=== PATIENT | male | born 1945 | race Caucasian/White ===

== ENCOUNTER 2017-03-26 09:10 | Emergency (ER) | payer MEDICARE, OTHER ==
[~2017-03-26] VITALS: Ht 165.1 cm; Wt 79.4 kg
[~2017-03-26 09:10] MED LIST: AGGRENOX 25 MG-21 EA PO; CARVEDILOL3.125 MG PO; FENOFIBRATE160 MG PO; LEVEMIR100 UNIT/1 SUB-Q; LISINOPRIL-HCT1 EAC2 PO; METFORMIN HCL500 MG PO; NOVOLOG FL100 UNIT/1 SUB-Q; SIMVASTATIN20 MG PO; VICTOZA 3-0.6 MG/0.1 SUB-Q
[2017-03-26] MEDS ORDERED: HUMALOG100 UNITS/ IV (09:42)
== END 2017-03-26 12:35 | disposition home or self-care (01) ==
LOC: ED 09:10
DX: R10.30 Lower abdominal pain, unspecified (principal); N41.1 Chronic prostatitis; Z79.4 Long term (current) use of insulin; Z79.899 Other long term (current) drug therapy; Z79.84 Long term (current) use of oral hypoglycemic drugs
CPT/HCPCS: 74176; 80053; 81001; 85025; 96361; 96374; 96375; 99284; J1885; J2405; J7030

== ENCOUNTER 2017-04-30 16:16 | Emergency (ER) | payer MEDICARE, OTHER ==
[~2017-04-30] VITALS: Ht 165.1 cm; Wt 79.4 kg
[~2017-04-30 16:16] MED LIST changes: +HUMALOG100 UNITS/ IV
[2017-04-30] MEDS ORDERED: ASPIR 8181 MG PO (16:55)
[2017-04-30] MEDS ORDERED: PLAVIX75 MG PO (16:55)
[2017-04-30] MEDS ORDERED: AUGMENTIN 875-1 EACH PO (17:52)
--- NOTE | 2017-05-03 07:23 | EKG ---
[facility] [address] [facility] [place], [place] [address] Signed Normal sinus rhythm Possible Anterior infarct , age undetermined Abnormal ECG No previous ECGs available Confirmed by RENATA FRAGA MD ([id number]) on 05/03/2017 7:23:06 AM Electronically Signed By: RENATA FRAGA MD 05/03/17722 PATIENT NAME: ARSALAN HUAARLETTE NOBLE Electrocardiogram DATE OF : 45 PHYSICIAN: RENATA FRAGA MD REPORT #: [id number] REPORT IS CONFIDENTIAL AND NOT TO BE RELEASED WITHOUT AUTHORIZATION
== END 2017-04-30 17:55 | disposition home or self-care (01) ==
LOC: ED 16:16
DX: R07.89 Other chest pain (principal); H66.93 Otitis media, unspecified, bilateral; E11.9 Type 2 diabetes mellitus without complications; I10 Essential (primary) hypertension; Z79.4 Long term (current) use of insulin; Z79.82 Long term (current) use of aspirin; Z79.899 Other long term (current) drug therapy
CPT/HCPCS: 71046; 80048; 84484; 85025; 93005; 93010; 99283

== ENCOUNTER 2017-05-22 09:23 | Emergency (ER) | payer MEDICARE, OTHER ==
[~2017-05-22] VITALS: Ht 165.1 cm; Wt 79.4 kg
[~2017-05-22 09:23] MED LIST changes: +ASPIR 8181 MG PO; +AUGMENTIN 875-1 EACH PO; +PLAVIX75 MG PO
[2017-05-22] MEDS ORDERED: LEVAQUIN750 MG PO (10:55)
== END 2017-05-22 11:10 | disposition home or self-care (01) ==
LOC: ED 09:23
PROC: 4A0D7LZ Measurement of Urinary Volume, Via Natural or Artificial Opening (ICD-10-PCS; principal; 2017-05-22)
DX: N39.0 Urinary tract infection, site not specified (principal); N40.1 Benign prostatic hyperplasia with lower urinary tract symptoms; N39.41 Urge incontinence; E11.9 Type 2 diabetes mellitus without complications; I10 Essential (primary) hypertension; Z79.4 Long term (current) use of insulin; Z79.82 Long term (current) use of aspirin; Z79.899 Other long term (current) drug therapy; Z79.84 Long term (current) use of oral hypoglycemic drugs
CPT/HCPCS: 51798; 81001; 87077; 87088; 87186; 99284

== ENCOUNTER 2020-10-17 05:48 | Day surgery (SDC) | payer MEDICARE, OTHER ==
[~2020-10-17] VITALS: Ht 170.2 cm; Wt 79.5 kg
[~2020-10-17 05:48] MED LIST changes: +CEPHALEXIN500 MG PO; +FLOMAX0.4 MG PO; +LEVAQUIN750 MG PO; +LEVEMIR FL100 UNIT/2 SQ; +PROSTATE HEALT1 EAC1 PO; +ZYRTEC10 MG PO
--- NOTE | 2020-10-17 09:34 | NUR ---
10/17/20 0934 [place] [facility] 0928: PT ARRIVES TO PACU AWAKE WITH 6L O2 VIA MASK, SATS 100%. PT RESP EVEN AND UNLABORED. PT ABLE TO DENY ANY NAUSEA AND STATES "A LITTLE" PAIN WHEN ASKED. EVANS LADD AT BEDSIDE.
--- NOTE | 2020-10-17 11:02 | NUR ---
PT TO MED-SURG VIA STRETCHER ALERT AND COOPERATIVE. ASSISTED TO THE BED SCD'S IN PLACE. PT AGREES HE IS COMFORTABLE. ASCENCIO DRAINING PALE PINK, OPENED UNTIL RAN CLEAR THEN SET BACK TO A SLOW DRIP. PT HAS FRIEND AT BEDSIDE. FOOD AND DRINK PROVIDED. CALL LIGHT IN HAND ORIENTED TO ROOM. AGREES TO CALL FOR ANY NEEDS OR DISCOMFORTS.
[2020-10-17] MEDS ORDERED: COREG3.125 MG PO (11:07)
[2020-10-17] MEDS ORDERED: ZOCOR40 MG PO (11:11)
--- NOTE | 2020-10-17 11:35 | NUR ---
PT CONTINUES AWAKE RESTING IN BED VISITING WITH GUEST. REPOSITONS SELF FLOEY DRAINS RED FOR A TIME, RETURNS TO LIGHT PINK. NO CLOTS. PT CONTINUES TO DENY PAIN OR NEED OF MEDICATION. CBG RECORDED FROM HIS INDWELLING DEVICE, INSULIN GIVEN, FOOD PROVIDED.
--- NOTE | 2020-10-17 13:46 | NUR ---
pt up to bsc
[2020-10-17] MEDS ORDERED: OXYCODONE HCL5 MG PO (14:07)
[2020-10-17] MEDS ORDERED: CEFDINIR300 MG PO (14:08)
[2020-10-17] MEDS ORDERED: COLACE100 MG PO (14:15)
[2020-10-17] MEDS ORDERED: METFORMIN HCL500 M3 PO (14:56)
[2020-10-17] MEDS ORDERED: LEVEMIR100 UNIT/1 SUB-Q (14:57)
[2020-10-17] MEDS ORDERED: INSULIN LI100 UNIT/1 SUB-Q (14:58)
--- NOTE | 2020-10-17 15:19 | NUR ---
PT RESTING EYES CLOSED. CBI IS CLAMPED AT THIS TIME, HAS BEEN FOR APPROX 1 HOUR. CLEAR YELLOW URINE DRAINING, NO PINK OR RED COLOR PRESENT AT ALL. SCD'S IN PLACE, CALL LIGHT IN REACH, IV INFUSING. HR CONTINUES TO BE MIGUEL RUNNING 40'S AND 50'S CURRENTLY.
--- NOTE | 2020-10-17 17:55 | NUR ---
PATIENT BACK TO BED FROM BSC, IND. VITALS AND I&O'S CHARTED. CALL LIGHT IN REACH. NO FURTHER NEEDS AT THIS TIME.
--- NOTE | 2020-10-17 19:42 | NUR ---
REPORT RECEIVED FROM DAY SHIFT RN. PT LYING IN BED ALERT AND ORIENTED. CBI CLAMPED. URINE YELLOW IN TUBING. IVF INFUSING WNL. DENIES NEEDS AT THIS TIME. WHITE BOARD UPDATED. CALL LIGHT IN REACH.
--- NOTE | 2020-10-17 20:04 | NUR ---
DISCUSSED WITH DR. HAIDER PT BLOOD SUGAR. VERBAL ORDERS RECEIVED VERIFIED WITH READ BACK METHOD.
--- NOTE | 2020-10-17 21:45 | NUR ---
EVENING ASSESSMENT COMPLETE. SCHEDULED MEDS ADMINISTERED PER EMAR. PT USED IMPLANTED DEVICE TO CHECK OWN BLOOD SUGAR. SLIDING SCALE INSULIN ADMINISTERED PER ORDER. CBI CLAMPED. URINE RED TINGED. NO CLOTS NOTED. PT REPORTS HE HAD JUST ROLLED OVER TO HIS SIDE AND RED WAS NOTICED IN TUBING. SMALL AMOUNT OF RED DRAINAGE FROM PENIS, JANELLE CARE DONE. PRN FOR PAIN ADMINISTERD FOR DISCOMFORT. IVF INFUSING WNL. CPOX AND SCD'S IN PLACE. PT DENIES QUESTIONS OR CONCERNS. CALL LIGHT IN REACH.
--- NOTE | 2020-10-18 00:24 | NUR ---
PT RESTING IN BED WITH EYES CLOSED. RESPIRATIONS EVEN. NEW BAG IVF INFUSING. ASCENCIO PATENT WITH PINK TINGED URINE IN TUBING. SCD'S IN PLACE. CALL LIGHT IN REACH.
--- NOTE | 2020-10-18 02:49 | NUR ---
VS AND I&O COMPLETE. ASCENCIO PATENT WITH QUANTITY SUFFICIENT YELLOW URINE IN TUBING. CBI REMAINS CLAMPED. PT DENIES PAIN OR NAUSEA. REPORTS HE IS RESTING WELL. DENIES FURTHER NEEDS. CALL LIGHT IN REACH.
--- NOTE | 2020-10-18 06:15 | NUR ---
ASCENCIO PATENT WITH QUANTITY SUFFICIENT YELLOW URINE. CBI REMAINS CLAMPED. PT DENIES PAIN OR NAUSEA. IVF INFUSING WNL. PT CHECKED OWN BLOOD GERLO=[id number]. NO NEEDS AT THIS TIME. CALL LIGHT IN REACH.
--- NOTE | 2020-10-18 07:37 | NUR ---
PT ON THE TOILET AT TIME OF SHIFT EXCHANGE. SITTING UPRIGHT IN BED AT THIS TIME USING THE PHONE. DENIES NEEDS OR DISCOMFORTS. FOELY BAG LIGHT PINK IN COLOR, EMPTIED 250MLS TO START FRESH THIS AM SHIFT.
--- NOTE | 2020-10-18 09:07 | NUR ---
PATIENT UP TO COMMODE TO ATTEMPT BM, NONE NOTED. PHARMACY IN TO DISCUSS DISCHARGE PRESCRIPTIONS WITH PATIENT.
[2020-10-18] MEDS ORDERED: FLOMAX0.4 MG PO (09:16)
--- NOTE | 2020-10-18 09:21 | NUR ---
MED REC COMPLETE
--- NOTE | 2020-10-18 09:23 | NUR ---
PATIENT IN BED WATCHING TV. VITALS AND I&O'S CHARTED. CALL LIGHT IN REACH. NO FURTHER NEEDS AT THIS TIME.
--- NOTE | 2020-10-18 09:35 | NUR ---
SPOKE WITH PATIENT IN ROOM. PATIENT IS RETIRED, DRIVES. LIVES ALONE BUT DEREK LIVES CLOSE BY. SHE WILL DRIVE HOME AT DISCHARGE. DENIES USING DME BUT HAS A QUAD CANE AT HOME IF NEEDED. DENIES FINANCIAL WORRIES FOR MEDS/FOOD/UTILITIES. FEELS SAFE TO RETURN HOME. WILL LET NURSES KNOW IF ANYTHING IS NEEDED.
--- NOTE | 2020-10-18 09:40 | NUR ---
PT EATS WELL THIS MORNING STATES HE FEELS GOOD AND LOOKS FORWARD TO DC. DENIES PAIN, DISCOMFORTS, OR NEEDS OF.
--- NOTE | 2020-10-18 11:08 | NUR ---
REVIEWED CATH CARE AT LENGTH WITH THIS PT. REVIEWED AND DEMONSTRATED ASCENCIO CARE AND HOW TO WASH THIS TWICE DAILY. PT VERBALIZES UNDERSTANDING OF RISK OF INFECTION IF CARE NOT PERFORMED APPROPRIATELY. PT IS ABLE TO DEMONSTRATE EMTPYING OF CATH BAG WITH VERBAL INSTRUCTION. REVIEWED S/S OF COMPLICATION AND NEED TO CALL MD FOR EXCESSIVE BLOOD OR CONCERNS. PT IS ENCOURAGED TO CALL MED-SURG ANY TIME WITH ANY QUESTIONS. HE ASKS APPROPRIATE QUESTIONS ALL QUESTIONS ANSWERED.
--- NOTE | 2020-10-18 13:19 | NUR ---
DC ORDERS AND CATH CARE REVIEWED A 2ND TIME WITH PT'S GIRLFRIEND PRESENT. PT ABLE TO VERBALIZE CLEANING AND CARING FOR ASCENCIO DENIES FURTHER QUESTIONS OR CONCERNS.
--- NOTE | 2020-10-19 08:52 | OR ---
[facility] [address] [facility] [place] [place] [address] Signed DATE OF OPERATION: 10/17/2020 SURGEON: Nasreen Haider MD PREOPERATIVE DIAGNOSES: 1. Low caliber bulbar urethral stricture. 2. Benign prostatic hyperplasia with lower urinary tract symptoms. POSTOPERATIVE DIAGNOSES: 1. Low caliber bulbar urethral stricture. 2. Benign prostatic hyperplasia with lower urinary tract symptoms. NAMES OF PROCEDURES: 1. Dilation of bulbar urethral stricture using Gunner dilators from 18-Pakistani to 24-Pakistani. 2. Diagnostic cystoscopy. 3. Transurethral resection of the prostate. 4. Digital rectal examination. ANESTHESIA: General LMA. COMPLICATIONS: None. ESTIMATED BLOOD LOSS: Minimal. DRAINS: A 22-Pakistani 3-way Bhat catheter, connected to continuous bladder irrigation. SPECIMENS: Prostate chips with associated prostatic calculi sent to pathology for evaluation. INDICATIONS FOR PROCEDURE: Mr. Hua is a very pleasant 74-year-old gentleman, who presented to me with a weak force of stream as well as some reactive urgency and frequency symptoms. He underwent a diagnostic cystoscopy which revealed grade 4 bladder wall trabeculation along with an elevated bladder neck and moderate lateral lobe hypertrophy. Given the obvious presence of bladder outlet obstruction, the decision was made for the patient to undergo Electronically Signed By: NASREEN HAIDER MD 10/19/20 0852 PATIENT NAME: FORREST HUA OPERATIVE REPORT DATE OF : 45 REPORT #: [id number] PHYSICIAN: NASREEN HAIDER MD PCP: PETR MONAE MD REPORT IS CONFIDENTIAL AND NOT TO BE RELEASED WITHOUT AUTHORIZATION [facility] [address] [place], [place] [address] Signed transurethral resection of the prostate. At the time of diagnostic cystoscopy, he did require dilation of a low caliber bulbar urethral stricture. He presents today to undergo the aforementioned procedure. OPERATIVE FINDINGS: 1. Diagnostic ureteroscopy revealed the presence of a low caliber bulbar urethral stricture. A wire was passed through the stricture into the patient's bladder. The patient's urethra was then dilated from 18-Pakistani to 24-Pakistani using Gunner dilators. 2. Diagnostic cystoscopy revealed no evidence of any suspicious masses, lesions, or stones. Bilateral ureteral orifices are in their normal anatomic location and effluxing clear urine. It was noted that the ureteral orifices were not near the bladder neck. 3. The patient's bladder neck and lateral lobes of the prostate were resected down to the verumontanum. There was only about 1 cm from bladder neck to verumontanum. There was no significant median lobe noted, only elevation of the bladder neck. The resection was performed without any difficulty. 4. There was a significant amount of prostatic calculi noted during the resection. All the prostate calculi were extracted and placed in with the specimen at the end of the procedure. 5. Digital rectal examination was performed, which revealed an approximately 40 g prostate that is smooth, soft, and symmetric with no focal nodules. DESCRIPTION OF PROCEDURE: After informed consent was obtained, the patient was taken back to the operating room. He was transferred [facility] the [facility] to the operating room table where general anesthesia was induced. He was placed in the dorsal lithotomy position and his genitalia prepped and draped in a standard sterile fashion. Using a 30-degree lens on a 21-Pakistani introducer, a diagnostic ureteroscopy was performed. Please see above findings. A 0.035 Sensor wire was passed through the urethral stricture and into the patient's bladder. The cystoscope was removed. Over the wire, I passed Gunner dilators from 18-Pakistani to 24-Pakistani to dilate the patient's bulbar urethral stricture. Please see above findings. Once this was complete, both the Gunner and the wire were completely removed from the patient's bladder. I then repeated a cystoscopy this time using the 26-Pakistani sheath with the visual obturator. I safely made it into the patient's bladder through the urethral stricture without difficulty. The patient's bladder was then drained and the resectoscope was then connected to the sheath. Prior to this, a thorough diagnostic cystoscopy was performed. Please see above findings. With resectoscope in place, I began resection of the patient's elevated bladder neck down to the level of the verumontanum. I then resected the left lateral and right lateral lobes of the prostate. Of note, these were not of any significant size. However, there was a good deal of prostatic calculi associated with the apex of the prostate. The resection time was around 20 minutes or so. After the prostate was resected, I evaluated the resection site for any residual hemorrhage. Any active bleeders were cauterized using Electronically Signed By: NASREEN HAIDER MD 10/19/20 0852 PATIENT NAME: FORREST HUA OPERATIVE REPORT DATE OF : 45 REPORT #: [id number] PHYSICIAN: NASREEN HAIDER MD PCP: PETR MONAE MD REPORT IS CONFIDENTIAL AND NOT TO BE RELEASED WITHOUT AUTHORIZATION [address] [address] Signed the 24-Pakistani loop. The patient's bladder was irrigated 2 to 3 times using a Chalo syringe to extract all of the prostate chips and prostatic calculi from the patient's bladder. This was performed without difficulty. Once I was satisfied that the resection was complete and hemostasis was achieved, I removed the resectoscope, leaving the sheath behind. I then again thoroughly irrigated the patient's bladder with a Chalo syringe. Of note, prior to the procedure, the patient's fossa navicularis was also dilated using [place] sounds from 18-Pakistani to 30-Pakistani without difficulty. With the prostate chips and prostatic calculi removed from the patient's bladder, I inserted a 22-Pakistani 3-way Bhat catheter into the patient's bladder over a Sensor wire without difficulty. The catheter was placed with 30 mL of sterile water injected into the Bhat balloon. The catheter was then manually irrigated to confirm placement. The catheter was connected to continuous bladder irrigation and this portion of the procedure was complete. He then underwent a digital rectal examination. Please see above findings. The procedure was then complete. He tolerated the procedure well with no complication. He will now be transferred to the postanesthesia care unit in stable condition. DISPOSITION: I discussed the details of today's procedure with Colleen Hua, who I believe is his daughter. I answered all of her questions and I informed her that he may not restart his Plavix until at least 3 to 4 days from now. The patient will be sent home tomorrow after undergoing a slow wean off the CBI on the med/surg floor today. He will be sent home with oxycodone 5 mg one tablet p.o. q.6 hours p.r.n. pain, dispense #15 along with cefdinir 300 mg p.o. b.i.d. for a total of 7 days. He is scheduled to return to clinic this October 20 for a voiding trial. MD HEIDI [place]/MODL /[id number] Copies: ~ Electronically Signed By: NASREEN HAIDER MD 10/19/20 0852 PATIENT NAME: FORREST HUA SUNDEEP HARKINS OPERATIVE REPORT DATE OF : 45 REPORT #: [id number] PHYSICIAN: NASREEN HAIDER MD PCP: PETR MONAE MD REPORT IS CONFIDENTIAL AND NOT TO BE RELEASED WITHOUT AUTHORIZATION
== END 2020-10-18 13:25 | disposition home or self-care (01) ==
LOC: DS 05:48 → MS 05:48 → DS 06:45 → MS 10:30 → DS 10-18 13:25
PROVIDERS: ATTEND Urology
PROC: 0VT08ZZ Resection of Prostate, Via Natural or Artificial Opening Endoscopic (ICD-10-PCS; principal; 2020-10-17 06:45)
DX: N40.1 Benign prostatic hyperplasia with lower urinary tract symptoms (principal); R35.0 Frequency of micturition; R39.15 Urgency of urination; N39.43 Post-void dribbling; R39.12 Poor urinary stream; R39.14 Feeling of incomplete bladder emptying; N13.8 Other obstructive and reflux uropathy; N35.912 Unspecified bulbous urethral stricture, male; N42.0 Calculus of prostate; E11.9 Type 2 diabetes mellitus without complications; I10 Essential (primary) hypertension; Z20.822 Contact with and (suspected) exposure to COVID-19
CPT/HCPCS: 00914; 88307; A9270; C1769; C9803; J0690; J0696; J1100; J1160; J1815; J1885; J2405; J2704; J2765; J3010; J7121; U0003

== ENCOUNTER 2021-01-19 11:15 | Emergency (ER) | payer MEDICARE, OTHER ==
[~2021-01-19] VITALS: Ht 170.2 cm; Wt 78.5 kg
[~2021-01-19 11:15] MED LIST changes: +CEFDINIR300 MG PO; +COLACE100 MG PO; +COREG3.125 MG PO; +INSULIN LI100 UNIT/1 SUB-Q; +METFORMIN HCL500 M3 PO; +OXYCODONE HCL5 MG PO; +ZOCOR40 MG PO
[2021-01-19] MEDS ORDERED: PREDNISONE20 MG PO (12:17)
== END 2021-01-19 12:30 | disposition home or self-care (01) ==
LOC: ED 11:15
DX: M17.11 Unilateral primary osteoarthritis, right knee (principal); E11.9 Type 2 diabetes mellitus without complications; I10 Essential (primary) hypertension; Z87.891 Personal history of nicotine dependence; Z87.440 Personal history of urinary (tract) infections; Z88.5 Allergy status to narcotic agent; Z88.8 Allergy status to other drugs, medicaments and biological substances; Z79.4 Long term (current) use of insulin; Z79.899 Other long term (current) drug therapy; Z79.02 Long term (current) use of antithrombotics/antiplatelets
CPT/HCPCS: 73560; 99283; J7512

== ENCOUNTER 2023-12-28 08:06 | Emergency (ER) | payer MEDICAID ==
[~2023-12-28] VITALS: Ht 170.2 cm; Wt 84.4 kg
[~2023-12-28 08:06] MED LIST changes: +PREDNISONE20 MG PO
[2023-12-28] MEDS ORDERED: CLOPIDOGREL75 MG PO (08:20)
[2023-12-28 08:33] LABS: HEMOGLOBIN 14.5 g/dL (12.0-18.0); MCV 91.3 fl (81-99); PLATELET COUNT 220 K/uL (140-440)
[2023-12-28 08:36] LABS: BASOPHILS 0.6 % (0-2); EOSINOPHILS 3.3 % (0-6); HEMATOCRIT 42.8 % (35.0-50.0); LYMPHOCYTES 27.5 % (24-44); MCH 30.9 (27-36); MCHC 33.8 g/dl (30-36); MONOCYTES 7.8 % (0-12); NEUTROPHILS 60.8 % (39-80); RBC 4.68 M/ul (4.3-5.7); RDW 13.8 (10.5-15.0)
[2023-12-28 08:42] LABS: PARTIAL THROMBOPLASTIN TIME 25.6 Sec (22.9-41.3)
[2023-12-28 08:43] LABS: INR 1.04 (0.80-1.30); PROTIME 12.9 Sec (11.2-14.2)
[2023-12-28 08:50] LABS: ALBUMIN 3.4 g/dL (3.4-5.0); ANION GAP 13.2 (7-21); BILIRUBIN, TOTAL 0.6 ng/dL (0.2-1.0); BUN/CREATININE RATIO 13.47 (6.0-28.6); CALCIUM 8.9 mg/dL (8.5-10.1); CREATININE, SERUM 1.41 mg/dL (0.70-1.30); POTASSIUM 4.2 mmol/L (3.5-5.1); PROTEIN, TOTAL 6.8 g/dL (6.4-8.2)
[2023-12-28] MEDS ORDERED: ASPIRIN 81 MG CHEW PO ONE (10:00)
[2023-12-28] MEDS ORDERED: BAYER CHEWABLE81 MG PO (10:58)
[2023-12-28 11:12] VITALS: BP 169/64
--- NOTE | 2023-12-29 20:50 | EKG ---
[facility] [address] [facility] [place] [address] Signed Sinus bradycardia Left bundle branch block Abnormal ECG When compared with ECG of 26-SEP-2020 09:52, Left bundle branch block is now present Minimal criteria for Anterior infarct are no longer present Confirmed by Marisa Denson MD ([id number]) on 12/29/2023 8:49:50 PM Electronically Signed By: MARISA DENSON DO 12/29/232049 PATIENT NAME: FORREST HUA Electrocardiogram DATE OF : 45 PHYSICIAN: MARISA DENSON DO REPORT #: [id number] REPORT IS CONFIDENTIAL AND NOT TO BE RELEASED WITHOUT AUTHORIZATION
== END 2023-12-28 11:12 | disposition home or self-care (01) ==
LOC: ED 08:06
PROVIDERS: Emergency Medicine
DX: I65.01 Occlusion and stenosis of right vertebral artery (principal); R94.4 Abnormal results of kidney function studies; E11.9 Type 2 diabetes mellitus without complications; I10 Essential (primary) hypertension; Z87.891 Personal history of nicotine dependence; Z88.5 Allergy status to narcotic agent; Z88.8 Allergy status to other drugs, medicaments and biological substances; Z79.4 Long term (current) use of insulin; Z79.899 Other long term (current) drug therapy
CPT/HCPCS: 36415; 70450; 70496; 70498; 71045; 80053; 84484; 85025; 85610; 85730; 93005; 93010; 99284-25; A9270; Q3014; Q9967

== ENCOUNTER 2023-12-30 06:38 | Emergency (ER) | payer MEDICARE ==
[~2023-12-30] VITALS: Ht 170.2 cm; Wt 84.1 kg
--- OUTSIDE RECORDS SUMMARY | ~2023-12-30 | XMS | Continuity of Care Document ---
Demographics + + + | Address | [address] | | | [place] [address] | + + + | Preferred Language | Unknown | + + + | Marital Status | | + + + | Anabaptist Affiliation | Unknown | + + + | Race | White | + + + | Ethnic Group | Not or | + + + Author + + + | Author | [facility] | + + + | Organization | [facility] | + + + | Address | [address] | | | [place] [address] | + + + | Phone | | + + + Care Team Providers + + + + | Care Cosmetics Machine Operator Name | Role | Phone | + + + + Unavailable | Unavailable | + + + + Unavailable | Unavailable | + + + + Allergies No information. Encounters No information. Functional Status No information. Immunizations No information. Medications No information. Problems No information. Procedures + + + + | date | description | facility | + + + + | 2023-11-18 00:00 | Controlling BP; [facility] | [facility] | | | recent Systolic BP | | | | 130-139mm Hg | | + + + + | 2023-11-18 00:00 | Controlling BP; [facility] | [facility] | | | recent Diastolic BP btwn | | | | 80-89 mm Hg | | + + + + Results/Labs No information. Social History + + + + | date | description | facility | + + + + | 2023-11-18 00:00 | Never smoked tobacco | [facility] | | | (finding) | | + + + + | 2023-11-18 00:00 | Unknown if ever smoked | [facility] | + + + + Vital Signs + + + + + | date | measurement | value | units | + + + + + | 2023-11-18 00:00 | BMI | 30.4 | 1 | + + + + + | 2023-11-18 00:00 | BP_diastolic | 80 | mmHg | + + + + + | 2023-11-18 00:00 | BP_systolic | 136 | mmHg | + + + + + | 2023-11-18 00:00 | BSA | 1.9 | 1 | + + + + + | 2023-11-18 00:00 | heart_rate | 1|1| | completed | + + + + + | 2023-11-18 00:00 | heart_rate | 82 | /min | + + + + + | 2023-11-18 00:00 | height_metric | 166.37 | cm | + + + + + | 2023-11-18 00:00 | height_standard | 65.5 | in | + + + + + | 2023-11-18 00:00 | o2_saturation | 99 | % | + + + + + | 2023-11-18 00:00 | temperature_metric | 36.5 | C | | | | | | + + + + + | 2023-11-18 00:00 | | 97.7 | F | | | temperature_standar | | | | | d | | | + + + + + | 2023-11-18 00:00 | weight_metric | 84.14 | kg | + + + + + | 2023-11-18 00:00 | weight_standard | 185.5 | lb | + + + + +"
[~2023-12-30 06:38] MED LIST changes: +BAYER CHEWABLE81 MG PO; +CLOPIDOGREL75 MG PO
--- OUTSIDE RECORDS SUMMARY | 2023-12-30 06:45 | XMS ---
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 EStephie VISIT COUNT (12 MO.) [address] TOTAL 4 NOTE: Visits indicate total known visits. ED/C VISIT TRACKING (12 MO.) 12/30/2023 06:39 [facility] [place] TYPE: Emergency COMPLAINT: - LEG PAIN 12/28/2023 08:07 [facility] TYPE: Emergency COMPLAINT: - RT LEG NUMB 09/15/2023 15:48 [facility] [place] TYPE: Emergency DIAGNOSES: - Toxic effect of venom of bees, accidental (unintentional), initial encounter - bee sting, low BP 03/16/2023 09:31 [facility] [place] TYPE: Emergency DIAGNOSES: - COVID-19 - POSSIBLE UTI - POSSIBLE UTI FEVER RUNNY NOSE INPATIENT VISIT TRACKING (12 MO.) No inpatient visits to display in this time frame [email or web address]
[2023-12-30 12:13] VITALS: BP 142/68
== END 2023-12-30 12:16 | disposition home or self-care (01) ==
LOC: ED 06:38
DX: R53.1 Weakness (principal); E11.9 Type 2 diabetes mellitus without complications; I10 Essential (primary) hypertension; Z87.891 Personal history of nicotine dependence; Z86.73 Personal history of transient ischemic attack (TIA), and cerebral infarction without residual deficits; Z88.5 Allergy status to narcotic agent; Z88.8 Allergy status to other drugs, medicaments and biological substances; Z79.82 Long term (current) use of aspirin; Z79.4 Long term (current) use of insulin; Z79.899 Other long term (current) drug therapy
CPT/HCPCS: 70544; 70549; 70551; 99284-25; A9579